=== PATIENT | female | born 1955 | race Caucasian/White ===

== ENCOUNTER 2018-01-26 07:16 | Emergency (ER) | payer OTHER ==
[~2018-01-26] VITALS: Ht 160 cm; Wt 74.8 kg
[~2018-01-26 07:16] MED LIST: ACCUNEB1.25 MG/3; ACIDOPHILUS1 EAC3 PO; AVALIDE 150-12.1 TA1; AVAPRO300 MG; COZAAR25 MG; CYMBALTA20 MG PO; HUMULIN 50/50 V10 ML SQ; HUMULIN 70/30 V10 ML; LANTUS100 U/ML; LANTUS100 U/ML SQ; LEVEMIR100 U/ML; LIPITOR40 MG; LYRICA150 MG; NEURONTIN600 MG; PULMICORT1 MG/2 ML; ZANTAC150 MG PO; [UNRECOGNIZED DRUG - OTHER]
== END 2018-01-26 15:29 | disposition home or self-care (01) ==
LOC: ER 07:16
DX: B34.9 Viral infection, unspecified (principal); N39.0 Urinary tract infection, site not specified

== ENCOUNTER 2023-02-11 10:10 | Emergency (ER) | payer OTHER ==
[~2023-02-11] VITALS: Ht 160 cm; Wt 79.8 kg
[2023-02-11] MEDS ORDERED: DIOVAN320 MG PO (10:32)
[2023-02-11] MEDS ORDERED: HUMALOG100 UNIT/2 SQ (10:33)
[2023-02-11] MEDS ORDERED: AMLODIPINE-OLM1 EAC2 (10:33)
[2023-02-11] MEDS ORDERED: HYDRALAZINE HC100 MG PO (10:33)
[2023-02-11] MEDS ORDERED: TOUJEO SOL300 UNIT/1 SQ (10:34)
[2023-02-11] MEDS ORDERED: NEURONTIN800 MG PO (10:34)
[2023-02-11] MEDS ORDERED: CRESTOR40 MG PO (10:34)
[2023-02-11] MEDS ORDERED: ZETIA10 MG (10:34)
== END 2023-02-11 15:42 | disposition home or self-care (01) ==
LOC: ER 10:10
DX: J06.9 Acute upper respiratory infection, unspecified (principal); I10 Essential (primary) hypertension; Z88.0 Allergy status to penicillin; Z88.2 Allergy status to sulfonamides; Z20.822 Contact with and (suspected) exposure to COVID-19

== ENCOUNTER 2024-04-14 07:07 | Outpatient (CLI) | payer OTHER ==
[~2024-04-14 07:07] MED LIST changes: +AMLODIPINE-OLM1 EAC2; +CRESTOR40 MG PO; +DIOVAN320 MG PO; +HUMALOG100 UNIT/2 SQ; +HYDRALAZINE HC100 MG PO; +NEURONTIN800 MG PO; +TOUJEO SOL300 UNIT/1 SQ; +ZETIA10 MG
== END 2024-04-14 07:09 | disposition home or self-care (01) ==
LOC: NUCLEAR 07:07
PROVIDERS: ATTEND Internal Medicine
DX: I20.9 Angina pectoris, unspecified (principal)
CPT/HCPCS: 78452; 93017; A9500; J0153

== ENCOUNTER 2024-11-13 10:45 | Outpatient (CLI) | payer OTHER | END 2024-11-13 10:51 | disposition home or self-care (01) | LOC: RAD 10:45 | PROVIDERS: ATTEND Internal Medicine | DX: J45.909 Unspecified asthma, uncomplicated (principal) ==